=== PATIENT | female | born 1985 | race African-American/Black ===

== ENCOUNTER 2022-02-05 19:25 | Inpatient (IN) | payer OTHER ==
[~2022-02-05 19:25] MED LIST: Bupivacaine 0.25% HCL 30 ML VIAL ONE
[2022-02-05 20:47] VITALS: BMI 30.9
[2022-02-05 21:26] LABS: Fetal Membranes Rupture RUPTURE DETECTED (No Rupture)
[2022-02-05] MEDS ORDERED: Ondansetron PF 4 MG/2 ML Vial IVP PRN (21:52)
[2022-02-05] MEDS ORDERED: Carboprost 250 MCG/ML AMP IM PRN (21:52)
[2022-02-05] MEDS ORDERED: Lidocaine 1% (PF) 30 ML VIAL SC PRN (21:52)
[2022-02-05] MEDS ORDERED: Methylergonovine 0.2 MG/ML VIAL IM PRN (21:52)
[2022-02-05] MEDS ORDERED: Ibuprofen 800 MG TAB PO PRN (21:52)
[2022-02-05] MEDS ORDERED: Acetaminophen 500 MG TAB PO PRN (21:52)
[2022-02-05] MEDS ORDERED: hydrALAZINE 20 MG/ML VIAL SLOW IVP PRN (21:52)
[2022-02-05] MEDS ORDERED: Butorphanol Tartrate 1 MG/ML VIAL SLOW IVP PRN (21:52)
[2022-02-05] MEDS ORDERED: Promethazine HCl 25 MG/ML VIAL IM PRN (21:52)
[2022-02-05] MEDS ORDERED: Misoprostol 200 MCG TAB PR PRN (21:52)
[2022-02-05] MEDS ORDERED: NS w/ Oxytocin 30 units 500 ML IV SCH ×2 (22:00)
[2022-02-05] MEDS ORDERED: Penicillin G Potassium 5 MILL.UNITS in Sodium Chloride 0.9% 100 ML IVPB SCH (22:00)
[2022-02-05] MEDS ORDERED: Lactated Ringer's 1,000 ML IV SCH (22:00)
[2022-02-05 23:14] LABS: Hemoglobin 10.6 g/dL (12.0-15.5); Mean Corpuscular HGB CONC 33.3 g/dL (32.0-36.0); Mean Corpuscular Hemoglobin 29.8 pg (27.0-33.0); Mean Corpuscular Volume 89.3 fl (81.6-98.3); Mean Platelet Volume 11.1 fl (7.4-10.4); Platelet Count 272 10x3/uL (150-450); RBC Distribution Width 12.9 % (11.5-14.5); Red Blood Cell (RBC) Count 3.56 10x6/uL (3.90-5.03); White Blood Cell (WBC) Count 10.2 10x3/uL (3.5-10.5)
[2022-02-05 23:34] LABS: ALT (SGPT) 12 U/L (8-55); AST (SGOT) 14 U/L (5-34); Albumin 3.4 g/dL (3.5-5.0); Alkaline Phosphatase 154 U/L (40-110); Anion Gap 14 mmol/L (10-20); BUN (Urea Nitrogen) 6 mg/dL (7.0-18.7); Bilirubin, Total 0.4 mg/dL (0.2-1.2); Calc. Creatinine Clearance 149 mL/min (70-130); Calcium 9.1 mg/dL (7.8-10.44); Carbon Dioxide 20 mmol/L (22-29); Chloride 107 mmol/L (98-107); Estimated GFR 115; Glucose 75 mg/dL (70-105); Potassium 3.9 mmol/L (3.5-5.1); Protein, Total 6.4 g/dL (6.0-8.3); Sodium 137 mmol/L (136-145)
[2022-02-05 23:55] LABS: HBSAg Index 0.13 S/CO (0-0.99); HIV (1/2) Antibody/Antigen Non-Reactive (NonReactive); HIV 1/2 INDEX 0.13 S/CO (<1.00); Hep B Surf Ag Non-Reactive S/CO (NonReactive)
[2022-02-05 23:56] LABS: Syphilis Antibody Nonreactive (Nonreactive); Syphilis Antibody Index 0.04 S/CO (<1.00 Non-Reactive)
[2022-02-06 01:58] LABS: Amphetamine Not Detected (NotDetected); Barbiturates Screen Not Detected (NotDetected); Benzodiazepine Screen Not Detected (NotDetected); Cocaine Metabolite Screen Not Detected (NotDetected); Methadone Not Detected (NotDetected); Methamphetamine Not Detected (NotDetected); Opiate Screen Not Detected (NotDetected); Oxycodone Screen Not Detected (NotDetected); Phencyclidine (PCP) Not Detected (NotDetected); THC/Cannabinoid Screen Not Detected (NotDetected); Tricyclic Screen Not Detected (NotDetected)
[2022-02-06] MEDS: Penicillin G 2.5 MILL.units 2.5 MILL.UNITS in Premix Bag 1 BAG IVPB SCH ×2 (07:06→11:00)
[2022-02-06] MEDS ORDERED: Fentanyl 2 mcg/Bup 0.1% Cadd 100 ML ONE (08:36)
[2022-02-06] MEDS ORDERED: Ondansetron PF 4 MG/2 ML Vial IVP PRN (09:56)
[2022-02-06] MEDS ORDERED: Moisturizing Cream (Eucerin) 113 GM JAR TOP PRN (09:56)
[2022-02-06] MEDS ORDERED: ePHEDrine Sulfate 50 MG/10 ML VIAL SLOW IVP PRN (09:56)
[2022-02-06] MEDS ORDERED: Lactated Ringer's 500 ML IV PRN (09:56)
[2022-02-06] MEDS ORDERED: Naloxone HCl 0.4 mg/ml Vial IVP PRN ×2 (09:56)
[2022-02-06] MEDS ORDERED: diphenhydrAMINE 50 MG/ML VIAL IVP PRN (09:56)
[2022-02-06] MEDS ORDERED: Promethazine HCl 25 MG/ML VIAL IM PRN (09:56)
[2022-02-06] MEDS ORDERED: Fentanyl 2 mcg/Bupivacaine 0.1% Cassette 100 ML EPIDURAL SCH (10:00)
[2022-02-06] MEDS ORDERED: Communication Order-Pharmacy FS SCH (10:00)
[2022-02-06] MEDS ORDERED: Bisacodyl 10 MG SUPP PR PRN (14:01)
[2022-02-06] MEDS ORDERED: diphenhydrAMINE 25 MG CAP PO PRN (14:01)
[2022-02-06] MEDS ORDERED: Milk Of Magnesia 30 ML UDCUP PO PRN (14:01)
[2022-02-06] MEDS ORDERED: Boostrix 0.5 ML (Tdap) VIAL (>/=7 yrs of age) IM ONE (14:01)
[2022-02-06] MEDS ORDERED: hydrALAZINE 20 MG/ML VIAL SLOW IVP PRN (14:01)
[2022-02-06] MEDS ORDERED: Preparation H Ointment 28 GM TUBE PR PRN (14:01)
[2022-02-06] MEDS ORDERED: Methylergonovine 0.2 MG/ML VIAL IM PRN (14:01)
[2022-02-06] MEDS ORDERED: Benzocaine-Menthol 82.5 ML CAN TOP PRN (14:01)
[2022-02-06] MEDS ORDERED: Misoprostol 200 MCG TAB VAG PRN (14:01)
[2022-02-06] MEDS ORDERED: Lanolin Ointment 7 GM TUBE TOP PRN (14:01)
[2022-02-06] MEDS ORDERED: Methylergonovine 0.2 MG TAB PO PRN (14:01)
[2022-02-06] MEDS: Ibuprofen 800 MG TAB PO SCH ×2 (14:30→20:54)
[2022-02-06] MEDS: Ferrous Sulfate 325 MG TAB PO SCH (18:41)
[2022-02-06] MEDS: Acetaminophen 325 MG TAB PO PRN (20:56)
[2022-02-06] MEDS: Docusate 100 MG CAP PO SCH (20:56)
[2022-02-07] MEDS: Ibuprofen 800 MG TAB PO SCH ×3 (04:49→18:27)
[2022-02-07 08:54] LABS: Hemoglobin 10.4 g/dL (12.0-15.5)
[2022-02-07] MEDS: Docusate 100 MG CAP PO SCH ×2 (09:03→21:09)
[2022-02-07] MEDS: Prenatal Vitamin 1 TAB PO SCH (09:03)
[2022-02-07] MEDS: Ferrous Sulfate 325 MG TAB PO SCH ×2 (09:04→17:42)
[2022-02-07] MEDS: Acetaminophen 325 MG TAB PO PRN (18:28)
[2022-02-07] MEDS ORDERED: Hydrocortisone 1% Cream 30 GM TUBE TOP PRN (19:43)
[2022-02-07] MEDS: Penicillin G 2.5 MILL.units 2.5 MILL.UNITS in Premix Bag 1 BAG IVPB SCH (22:14)
[2022-02-08] MEDS: Ibuprofen 800 MG TAB PO SCH (05:13)
[2022-02-08] MEDS: Ferrous Sulfate 325 MG TAB PO SCH (06:47)
[2022-02-08 08:00] VITALS: BP 128/78; TEMP 97.7
[2022-02-08] MEDS: Prenatal Vitamin 1 TAB PO SCH (08:59)
[2022-02-08] MEDS: Docusate 100 MG CAP PO SCH (08:59)
== END 2022-02-08 11:58 | disposition home or self-care (01) | DRG 807 ==
LOC: CSHLD/OP 19:25 → CSHLD 21:45 → CSHPP 02-06 14:10
PROVIDERS: ADMIT Obstetrics & Gynecology; ATTEND Obstetrics & Gynecology
PROC: 10E0XZZ Delivery of Products of Conception, External Approach (ICD-10-PCS; principal; 2022-02-06)
PROC: 0HQ9XZZ Repair Perineum Skin, External Approach (ICD-10-PCS; 2022-02-06)
PROC: 0UQMXZZ Repair Vulva, External Approach (ICD-10-PCS; 2022-02-06)
DX: O42.02 Full-term premature rupture of membranes, onset of labor within 24 hours of rupture (principal); Z37.0 Single live birth; Z3A.38 38 weeks gestation of pregnancy; O70.0 First degree perineal laceration during delivery; O71.82 Other specified trauma to perineum and vulva; Z91.048 Other nonmedicinal substance allergy status
CPT/HCPCS: 51702; 80053; 80306; 84112; 85014; 85018; 85027; 86762; 86780; 86850; 86900; 86901; 87340; 87389; 99285; J2540; S0020